=== PATIENT | male | born 1970 | race Hispanic/Latino ===

== ENCOUNTER 2022-01-10 10:42 | Inpatient (IN) | payer BC ==
[~2022-01-10] VITALS: Ht 193 cm; Wt 112.0 kg
--- NOTE | 2022-01-10 11:12 | NUR ---
PATIENT ROOMED VIA WHEELCHAIR IN NAD BUT UNCOMFORTABLE. PROVIDER NOTIFIED OF PATIENT STATUS.
--- NOTE | 2022-01-10 11:33 | NUR ---
PT NOTED TO HAVE PERSISTENT HYPOTENSION DESPITE RECEIVING 1L NS BOLUS AT THIS TIME. PT RPTS LIGHTEHEADEDNESS BUT NO OTHER SYMPTOMS. PT PLACED IN [place] AND DR NAVAS CALLED TO BEDSIDE. 2ND IV STARTED AND 2ND L NS BOLUS STARTED AT THIS TIME. PT A&OX3 IN NAD. AT BEDSIDE
[2022-01-10 11:51] LABS: HEMATOCRIT 44.6 % (39.0-50.0); IMMATURE GRANULOCYTES 0.2 % (0.0-5.0); MEAN CORPUSCULAR HGB 30.8 pG CALC (26.0-32.0); MEAN CORPUSCULAR HGB CONC 33.6 g/dL CAL (32.0-36.0); NEUT# 7.53 thou/uL (1.82-7.42); RED BLOOD COUNT 4.87 mill/uL (4.70-6.10); RED CELL DISTRI WIDTH 13.9 % (11.5-15.5)
[2022-01-10 11:52] LABS: MEAN CELL VOLUME 91.6 fL CALC (80.0-100.0)
[2022-01-10 11:55] LABS: ALBUMIN 5.1 g/dL (3.2-5.0); ALKALINE PHOSPHATASE 86 u/l (38-126); BILIRUBIN, TOTAL 1.1 mg/dL (0.0-1.4); CHLORIDE 94 mmol/l (95-108); POTASSIUM 4.9 mmol/l (3.5-5.1); SGOT/AST 29 u/l (17-59); TOTAL PROTEIN 8.8 g/dL (6.3-8.2)
[2022-01-10 11:56] LABS: BUN 74 mg/dL (9-20)
[2022-01-10 11:57] LABS: ANION GAP 24 (6-22 (CALC)); BUN/CREATININE RATIO 7 (12-20 (CALC)); CARBON DIOXIDE 20 mmol/l (22-30); CREATININE 10.3 mg/dL (0.7-1.3); GFR FOR AFR.AMER. 7 ML/MIN (>=60 (CALC)); GFR OTHER RACES 5 ML/MIN (>=60 (CALC)); SODIUM 133 mmol/l (137-146)
--- NOTE | 2022-01-10 12:01 | NUR ---
PT TO CT AT THIS TIME. BP IMPROVED, NAD NOTED
[2022-01-10 12:10] LABS: MYOGLOBIN 774 ng/mL (0 - 121)
[2022-01-10 13:04] LABS: URINE BILIRUBIN - DIPSTICK NEGATIVE (NEGATIVE); URINE BLOOD DIPSTICK MODERATE (NEGATIVE); URINE COLOR YELLOW; URINE GLUCOSE - DIPSTICK 100 mg/dL (NEGATIVE); URINE KETONE TRACE mg/dL (NEGATIVE); URINE LEUK ESTERASE NEGATIVE (NEGATIVE); URINE NITRITE - DIPSTICK NEGATIVE (Negative); URINE PH 5.5 (4.5-8.0); URINE PROTEIN - DIPSTICK 100 mg/dL (NEG-TRACE); URINE SPECIFIC GRAVITY >=1.030; URINE UROBILINOGEN - DIPSTICK 0.2 E.U./dL (0.2)
[2022-01-10 13:09] LABS: URINE BACTERIA FEW hpf; URINE MUCUS FEW hpf (NONE-FEW)
[2022-01-10 13:10] LABS: URINE SQUAMOUS EPITHELIAL CELL FEW EPI/hpf (0-FEW)
[2022-01-10 13:11] LABS: URINE FINE GRAN CAST RARE lpf; URINE WBC 0-2 WBC/hpf (0-5)
[2022-01-10 13:12] LABS: URINE COARSE GRANULAR CAST FEW lpf; URINE HYALINE CAST MANY lpf (NONE-RARE)
[2022-01-10 13:13] LABS: URINE RENAL EPITHELIAL CELLS FEW hpf
[2022-01-10] MEDS ORDERED: SIMVASTATIN10 MG PO (14:00)
[2022-01-10] MEDS ORDERED: LISINOPRIL10 MG PO (14:00)
[2022-01-10] MEDS ORDERED: GARLIC (14:02)
--- NOTE | 2022-01-10 14:10 | NUR ---
THIS RN FOR PT TRANSPORT TO ROOM 267, PT NOTED TO BE HYPOTENSIVE AGAIN, DENIES SYMPTOMS AT THIS TIME. CONTINUOUS IVF STARTED AT THIS TIME. PENDING IMPROVED BP FOR TRANSPORT
--- NOTE | 2022-01-10 15:04 | NUR ---
PT TRANSPORTED TO ROOM 267 BY STRETCHER ON TELE MONITOR. RPT GIVEN AT BEDSIDE TO HAILEY CABRERA, ALL UESTIONS ADDRESSED. PT LEFT IN STABLE CONDITION, NAD NOTED. A&OX3, NO DIZZINESS, PAIN, SOB, OR LIGHTHEADEDNESS.
[2022-01-10 15:14] VITALS: BP 106/54
[2022-01-10 19:11] VITALS: BP 89/53
--- NOTE | 2022-01-10 20:14 | NUR ---
PT IN BED AWAKE FAMILY AT BEDSIDE, PT STATES NO PAIN, NO DISTRESS NOTED, BED IN LOW POSITION CALL LIGHT IN REACH, PT A/O X4, STILL A LITTLE WEAK, BUT OTHERWISE STATES FEELING BETTER.
[2022-01-11] VITALS (10 sets, daily range): BP systolic 80–136; BP diastolic 48–80
--- NOTE | 2022-01-11 02:08 | NUR ---
PT IS IN BED ASLEEP BP IS 81/[address] VARGAS HE PUT IN ORDER FOR 1L BOLUS WILL RECHECK BP WHEN BOLUS IS COMPLETE, PT ASYMPTOMATIC, NO DISTRESS NOTED, BED IN LOW POSITION, CALL LIGHT IN REACH
[2022-01-11 05:25] LABS: MEAN CELL VOLUME 93.3 fL CALC (80.0-100.0); MEAN CORPUSCULAR HGB 30.9 pG CALC (26.0-32.0); MEAN CORPUSCULAR HGB CONC 33.2 g/dL CAL (32.0-36.0); RED BLOOD COUNT 4.01 mill/uL (4.70-6.10); RED CELL DISTRI WIDTH 14.1 % (11.5-15.5)
[2022-01-11 05:26] LABS: HEMATOCRIT 37.4 % (39.0-50.0); HEMOGLOBIN 12.4 g/dl (14.0-18.0)
[2022-01-11 05:47] LABS: MAGNESIUM 2.6 mg/dL (1.6-2.3); POTASSIUM 4.8 mmol/l (3.5-5.1)
[2022-01-11 05:51] LABS: ALBUMIN 3.8 g/dL (3.2-5.0); CREATININE 3.7 mg/dL (0.7-1.3)
--- NOTE | 2022-01-11 08:09 | NUR ---
RESTING QUIETLY IN BED, NO SIGNS OR SYMPTOMS OF DISTRESS NOTE ANA MARIA VOICED.
--- NOTE | 2022-01-11 12:30 | NUR ---
RESTING QUIETLY IN ROOM, NO SIGNS OR SYMPTOMS OF DISTRESS NOTED OR VOICED.
--- NOTE | 2022-01-11 16:21 | NUR ---
RESTING QUIETLY IN ROOM, NO SIGNS OR SYMPTOMS OF DISTRESS NOTED OR VOICED.
--- NOTE | 2022-01-11 19:52 | NUR ---
PT IN BED AWAKE, FAMILY AT BEDSIDE, PT STATES NO PAIN AND IS FEELING BETTER, NO DISTRESS NOTED, BED IN LOW POSITION, CALL LIGHT IN REACH
[2022-01-12 04:00] VITALS: BP 99/67
[2022-01-12 04:01] VITALS: BP 99/67
--- NOTE | 2022-01-12 04:46 | NUR ---
PT IN BED ASLEEP, NO OVERNIGHT EVENTS, BED IN LOW POSITION, CALL LIGHT IN REACH
[2022-01-12 05:31] LABS: ALBUMIN 3.8 g/dL (3.2-5.0); CARBON DIOXIDE 21 mmol/l (22-30); CHLORIDE 112 mmol/l (95-108); SODIUM 138 mmol/l (137-146)
[2022-01-12 05:38] LABS: BUN 27 mg/dL (9-20); CREATININE 1.3 mg/dL (0.7-1.3); GFR FOR AFR.AMER. > 60 ML/MIN (>=60 (CALC)); GFR OTHER RACES 59 ML/MIN (>=60 (CALC))
[2022-01-12 05:40] LABS: POTASSIUM 5.4 mmol/l (3.5-5.1)
[2022-01-12 06:12] VITALS: BP 109/67
--- NOTE | 2022-01-12 08:00 | NUR ---
RESTING QUIETLY IN BED, NO SIGNS OR SYMPTOMS OF DISTRESS NOTED OR VOICED.
[2022-01-12 10:43] VITALS: BP 120/74
--- NOTE | 2022-01-12 11:30 | NUR ---
[facility] DISCHARGED HOME IN STABLE CONDITION, IV REMOVED, DISCHARGE INSTRUCTIONS GIVEN AND UNDERSTANDING VERBALIZED.
== END 2022-01-12 12:20 | disposition home or self-care (01) | DRG 641 ==
LOC: ED 10:42 → ED-I 12:40 → ED 13:05 → MS2 13:06
PROVIDERS: Emergency Medicine; Internal Medicine Nephrology; ADMIT Hospitalist; ATTEND Hospitalist
DX: E86.0 Dehydration (principal); N17.9 Acute kidney failure, unspecified; I95.9 Hypotension, unspecified; E87.2 Acidosis; E87.1 Hypo-osmolality and hyponatremia; E86.9 Volume depletion, unspecified; I10 Essential (primary) hypertension; E78.5 Hyperlipidemia, unspecified; X30.XXXA Exposure to excessive natural heat, initial encounter; Y93.89 Activity, other specified; Y99.0 Civilian activity done for income or pay; Z20.822 Contact with and (suspected) exposure to COVID-19